=== PATIENT | male | born 1965 | race African-American/Black ===

== ENCOUNTER → 2018-11-22 | Outpatient (CLI) | payer OTHER ==
--- NOTE | 2018-11-22 13:52 | RAD ---
Number spine radiograph 11/22/2018 Comparison: None. Indication: Chronic back pain Findings: 2 views of the lumbar spine demonstrate no acute fracture or subluxation. There are five lumbar type vertebral bodies. The alignment is within normal limits. Mild facet arthropathy. The vertebral bodies demonstrate normal height. The intervertebral disc spaces are well maintained. Impression: No acute fracture or malalignment of the lumbar spine. Electronically signed by: Daily Mayorga MD (11/22/2018 1:49 PM) [id number]
== END | disposition home or self-care (01) ==
LOC: RAD 09:51
PROVIDERS: ATTEND Internal Medicine
DX: M12.88 Other specific arthropathies, not elsewhere classified, other specified site (principal); G89.29 Other chronic pain
CPT/HCPCS: 72100